=== PATIENT | female | born 1950 | race Asian ===

== ENCOUNTER 2016-10-24 20:01 | Emergency (ER) | payer OTHER ==
--- NOTE | ~2016-10-24 | EKG ---
PATIENT: BILLIE LOPEZ UNIT #: [id number] Ventricular Rate: 98 BPM Atrial Rate: 98 BPM P-R Interval: 166 ms QRS Duration: 72 ms Q-T Interval: 366 ms QTC Calculation(Bezet): 467 ms P [place]: 66 degrees Calculated R [place]: 51 degrees Calculated T [place]: 60 degrees Diagnosis Line: Normal sinus rhythm Diagnosis Line: Normal ECG Diagnosis Line: No previous ECGs available Diagnosis Line: Confirmed by MAHOGANY VERA MD ([id number]) on Diagnosis Line: 10/26/2016 8:46:16 AM INTERPRETING MD: JODY GRACIA
--- NOTE | ~2016-10-24 | CR72 ---
[facility] A Service of [facility] & [facility] RADIOLOGY TEXT RESULTS PATIENT: BILLIE LOPEZ LOCATION: [facility] : 50 UNIT #: [id number] AGE: [address]: Wil Patel MD SEX: F ORDER DR: [id number] [facility] [address] [place], [place] [address] [id number] E MR#: [id number] Acc #: [id number] NAME: BILLIE LOPEZ : 1950 SEX: F STUDY DATE/TIME: 10/24/2016 21:26 UNIT: [facility] ROOM: STUDY DESCRIPTION: CR Chest Single View Portable Attending Physician: Wil Patel M.D. Ordering Physician: Wil Patel M.D. Primary Care Physician: Ady Loyola D.O. MEDICAL IMAGING REPORT This report is preliminary unless electronic signature is present EXAM Portable chest HISTORY Shortness of air and difficulty breathing today. FINDINGS The cardiac size and pulmonary vascularity are normal. No infiltrates or effusions. Mild linear atelectasis or scarring in the left mid lung. Remainder of the chest is unremarkable. IMPRESSION No acute findings and no active disease. Dictated by... Lucho Junior M.D. THIS IS AN ELECTRONICALLY VERIFIED REPORT Lucho Junior M.D. at 10/25/2016 3:15 PM DFL/tamika TD: 10/25/2016 01:30 JOB #: [id number] MEDICAL IMAGING REPORT Page 1 of 1 COPY
[~2016-10-24 20:01] MED LIST changes: -CELECOXIB200 MG; -CELEXA20 MG; -FLONASE 0.05% N16 G1
[2016-10-24 21:34] LABS: BASOPHIL% 0.2 % (0-2.5); EOSINOPHIL% 0.3 % (0.0-7.0); HEMATOCRIT 34.6 % (35.0-45.0); HEMOGLOBIN 11.4 gm/dL (12.0-16.0); LYMPHOCYTE# 0.9 X10e3 (1.0-3.5); LYMPHOCYTE% 9.3 % (17.0-45.0); MEAN CELL VOLUME 89.1 FL (83-96); MEAN CORPUSCULAR HEMOGLOBIN 29.3 PG (28-34); MEAN CORPUSCULAR HGB CONC 32.8 g/dL (30-36); MEAN PLATELET VOLUME 7.5 FL (6.5-11.5); MONOCYTE# 0.7 X10e3 (0-1.0); MONOCYTE% 7.1 % (3.0-12.0); NEUTROPHIL% 83.1 % (40-75); PLATELET COUNT 232 X10e3 (140-420); RED BLOOD COUNT 3.88 X10e (3.90-5.30); RED CELL DISTRIBUTION WIDTH 13.8 % (11.0-15.5); WHITE BLOOD COUNT 9.6 X10e3 (4.0-10.5)
[2016-10-24 21:37] LABS: DIFF IND NO
[2016-10-24 21:58] LABS: POC - CKMB 1.8 ng/mL (0.0-7.9); POC - TROPONIN <0.05 ng/mL (<=0.05)
[2016-10-24 22:01] LABS: ALBUMIN SERUM 3.9 g/dL (3.5-5.0); ALKALINE PHOSPHATASE 50 U/L (32-92); ALT (SGPT) 18 U/L (10-40); AST (SGOT) 21 U/L (10-42); BILIRUBIN,TOTAL 0.4 mg/dL (0.2-2.0); BLOOD UREA NITROGEN 23 mg/dL (9-23); BUN/CREATININE RATIO 28.75; CALCIUM SERUM 8.6 mg/dL (8.4-10.2); CARBON DIOXIDE 27 mmol/L (22-31); CHLORIDE 99 mmol/L (100-111); CREATININE SERUM 0.8 mg/dL (0.6-1.4); GLOM FILT RATE Estimated 76.9 mL/min (>60); GLUCOSE FASTING 197 mg/dL (70-110); POTASSIUM 3.3 mmol/L (3.5-5.1); PROTEIN TOTAL SERUM 7.2 g/dL (6.0-8.3); SODIUM 132 mmol/L (135-145)
[2016-10-24 22:05] LABS: BILIRUBIN, DIRECT <0.1 mg/dL (0.0-0.2); BILIRUBIN,INDIRECT 0.3 mg/dL (0.0-0.9)
== END 2016-10-24 22:40 | disposition home or self-care (01) ==
LOC: CED 20:01
PROVIDERS: Emergency Medicine
DX: J45.901 Unspecified asthma with (acute) exacerbation (principal); K21.9 Gastro-esophageal reflux disease without esophagitis; E78.5 Hyperlipidemia, unspecified; I10 Essential (primary) hypertension; Z90.89 Acquired absence of other organs; Z91.010 Allergy to peanuts
CPT/HCPCS: 36415; 71010; 80048; 80076; 82553; 84484; 85025; 93005; 94640; 96374; 99284; J2930

== ENCOUNTER → 2016-10-24 | Outpatient (CLI) | payer OTHER ==
[~2016-10-24] MED LIST: ALBUTEROL17 GM; AVAPRO; CELECOXIB200 MG; CELEXA20 MG; COMBIVENT14.7 GM INH; DICLOFENAC PO; DIOVAN HCT 1601 EACH PO; FLONASE 0.05% N16 G1; IPRATROPIUM0.2 MG/ML; IPRATROPIUM0.2 MG/ML NEB; LEXAPRO PO; LIPITOR PO; PREDNISONE PO; PROVENTIL0.83 MG/ML NEB; SINGULAIR PO; TYLOX 5/500 CAP1 CAP PO
--- NOTE | ~2016-10-24 | CT127 ---
[facility]. [facility] A Service of [facility] & [facility] RADIOLOGY TEXT RESULTS PATIENT: BILLIE LOPEZ LOCATION: [facility] : 50 UNIT #: [id number] AGE: [address]: DARA LOYOLA DO SEX: F ORDER DR: [id number] [address] [address] [id number] O MR#: [id number] [facility] #: [id number] NAME: BILLIE LOPEZ : 1950 SEX: F STUDY DATE/TIME: 10/24/2016 16:39 UNIT: [facility] ROOM: STUDY DESCRIPTION: CT Upper Ext Lt Wo Cont Attending Physician: Dara Loyola D.O. Referring Physician: Dara Loyola D.O. Ordering Physician: Dara Loyola D.O. Primary Care Physician: Dara Loyola D.O. MEDICAL IMAGING REPORT This report is preliminary unless electronic signature is present. EXAM CT left shoulder and scapula HISTORY 66-year-old female fell 1 week ago. Clinical concern for scapular fracture on outside radiographs. COMPARISON Portable chest 10/24/2016. TECHNIQUE Thin section axial images performed through the left shoulder and scapula with multiplanar reconstructed images reviewed at a workstation. This CT exam was performed with one or more of the following radiation dose reduction techniques: automatic exposure control, adjustment of mA and/or kV according to patient size, and iterative reconstruction. FINDINGS Examination demonstrates are confirms a mildly comminuted oblique fracture through the inferior left scapular body. The fracture extends from the lateral scapula adjacent to the glenoid to the inferior medial aspect of the scapular margin. Up to 8 mm of displacement of the fracture along the lateral margin of the fracture. The fracture is just below the dorsal spine of the scapula. The fracture does extend all the way to the base of the coracoid with minimal step-off at the base of the coracoid. No definite step-off or incongruity of the glenoid articular surface. Proximal humerus unremarkable except for enthesopathic changes along the anterior greater tuberosity. Acromion and AC joint unremarkable. Visualized left thorax unremarkable except for a small amount of lingular atelectasis. No pneumothorax or contusion or pleural effusion. No definite rib fractures. The surrounding soft tissues to include the rotator cuff musculature and the deltoid are unremarkable. No hematoma. STS. [facility] A Service of [facility] RADIOLOGY TEXT RESULTS PATIENT: BILLIE LOPEZ LOCATION: [facility] : 50 UNIT #: [id number] AGE: [address]: DARA LOYOLA DO SEX: F ORDER DR: Axilla unremarkable. IMPRESSION CT confirms a mildly comminuted oblique fracture through the body of the scapula extending from the lateral margin of the scapula near the base of the coracoid and superior margin of the glenoid obliquely through the inferior medial aspect of the scapula. Up to 8 mm of displacement at the mid inferior scapular body. No disruption of glenoid articular surface. Dictated by... Tacho Mcfadden M.D. THIS IS AN ELECTRONICALLY VERIFIED REPORT Tacho Mcfadden M.D. at 10/25/2016 5:07 PM NOAH/conrad TD: 10/25/2016 09:44 JOB #: [id number] MEDICAL IMAGING REPORT Page 1 of 1
== END | disposition home or self-care (01) ==
LOC: SCT 15:36
DX: M25.512 Pain in left shoulder (principal); S42.112A Displaced fracture of body of scapula, left shoulder, initial encounter for closed fracture
CPT/HCPCS: 73200

== ENCOUNTER 2016-12-22 17:28 | Emergency (ER) | payer OTHER ==
--- NOTE | ~2016-12-22 | CR72 ---
[facility]. [facility] A Service of [facility] & [facility] RADIOLOGY TEXT RESULTS PATIENT: BILLIE LOPEZ LOCATION: SED : 50 UNIT #: [id number] AGE: [address]: Taco Inman MD SEX: F ORDER DR: [id number] [address] [address] [id number] E MR#: [id number] Acc #: [id number] NAME: BILLIE LOPEZ : 1950 SEX: F STUDY DATE/TIME: 12/22/2016 18:18 UNIT: SED ROOM: STUDY DESCRIPTION: CR Chest Single View Portable Attending Physician: Taco Inman M.D. Ordering Physician: Taco Inman M.D. Primary Care Physician: Ady Loyola D.O. MEDICAL IMAGING REPORT This report is preliminary unless electronic signature is present. EXAM Portable chest HISTORY Chest pain today. FINDINGS Cardiac size and pulmonary vascularity are within normal limits. Mild linear atelectasis or scarring in the left mid lung. No airspace infiltrates or effusions. IMPRESSION No acute findings Dictated by... Lucho Junior M.D. THIS IS AN ELECTRONICALLY VERIFIED REPORT Lucho Junior M.D. at 12/23/2016 11:42 PM DFL/julia TD: 12/23/2016 02:06 JOB #: [id number] MEDICAL IMAGING REPORT Page 1 of 1
[2016-12-22] MEDS ORDERED: CELEXA20 MG (17:41)
[2016-12-22] MEDS ORDERED: FLONASE 0.05% N16 G1 (17:41)
[2016-12-22] MEDS ORDERED: CELECOXIB200 MG (17:41)
[2016-12-22 17:43] LABS: BASOPHIL% 0.9 % (0-2.5); EOSINOPHIL# 0.1 X10e3 (0-0.7); EOSINOPHIL% 3.2 % (0.0-7.0); HEMATOCRIT 37.2 % (35.0-45.0); HEMOGLOBIN 12.5 gm/dL (12.0-16.0); LYMPHOCYTE# 1.5 X10e3 (1.0-3.5); LYMPHOCYTE% 36.5 % (17.0-45.0); MEAN CELL VOLUME 89.4 FL (83-96); MEAN CORPUSCULAR HGB CONC 33.5 g/dL (30-36); MEAN PLATELET VOLUME 7.8 FL (6.5-11.5); MONOCYTE# 0.5 X10e3 (0-1.0); MONOCYTE% 12.6 % (3.0-12.0); NEUTROPHIL% 46.8 % (40-75); PLATELET COUNT 234 X10e3 (140-420); RED BLOOD COUNT 4.16 X10e (3.90-5.30); RED CELL DISTRIBUTION WIDTH 13.3 % (11.0-15.5); WHITE BLOOD COUNT 4.2 X10e3 (4.0-10.5)
[2016-12-22 17:58] LABS: DIFF IND NO
[2016-12-22 18:04] LABS: BUN/CREATININE RATIO 32.85; CALCIUM SERUM 9.4 mg/dL (8.4-10.2); CREATININE SERUM 0.7 mg/dL (0.6-1.4); GLOM FILT RATE Estimated 90.3 mL/min (>60); POTASSIUM 4.1 mmol/L (3.5-5.1)
[2016-12-22 18:09] LABS: POC - CKMB 2.5 ng/mL (0.0-7.9); POC - TROPONIN <0.05 ng/mL (<=0.05)
== END 2016-12-22 19:00 | disposition home or self-care (01) ==
LOC: SED 17:28
PROVIDERS: Emergency Medicine
DX: J45.901 Unspecified asthma with (acute) exacerbation (principal); I10 Essential (primary) hypertension; Z88.5 Allergy status to narcotic agent; Z91.010 Allergy to peanuts; Z79.899 Other long term (current) drug therapy
CPT/HCPCS: 36415; 71010; 80048; 82553; 83880; 84484; 85025; 94640; 96374; 99285; J1100